=== PATIENT | female | born 1970 | race Caucasian/White ===

== ENCOUNTER 2024-08-25 11:47 | Emergency (ER) | payer OTHER ==
[2024-08-25 11:53] VITALS: BP 125/72; PULSE 75; RESP 18; TEMP 97.9; BMI 26.9
[2024-08-25] MEDS ORDERED: LIDOCAINE 1%/EPI 1:100000 (20 ML MULTI DOSE VIAL) ONE (14:17)
[2024-08-25] MEDS: LIDOCAINE 1%/EPI 1:100000 (20 ML MULTI DOSE VIAL) INF ONE (14:18)
== END 2024-08-25 16:21 | disposition home or self-care (01) ==
LOC: JER 11:47
PROC: 0PSHXZZ Reposition Right Radius, External Approach (ICD-10-PCS; principal; 2024-08-25)
DX: S52.501A Unspecified fracture of the lower end of right radius, initial encounter for closed fracture (principal); S52.601A Unspecified fracture of lower end of right ulna, initial encounter for closed fracture; W01.198A Fall on same level from slipping, tripping and stumbling with subsequent striking against other object, initial encounter
CPT/HCPCS: 25605; 73110-TC-RT-FY; 73130-TC-RT-FY; 99283-25